=== PATIENT | female | born 1955 | race African-American/Black ===

== ENCOUNTER 2018-08-04 19:25 | Observation (INO) | payer OTHER ==
--- NOTE | 2018-08-04 19:33 | PDOC ---
Rapid Medical Evaluation Time Seen by Provider: 08/04/18 19:28 Medical Evaluation: Allergies Allergy/AdvReac Type Severity Reaction Status Date / Time No Known Allergies Allergy Verified 09/23/14 16:13 08/04/18 19:28 Pt presents for SOB, lightheadedness and cough for 3 days. PMHX of asthma and RA Exam: Lungs CATB, poor aeration to the bases. SPO2 82% ORA, Tachycardic to the 120's Orders: Labs, IV, Urine O2, EKG, cardiac monitoring Pt to proceed to ED for further evaluation Discharge Disposition - Diagnosis Shortness of breath - Referrals - Patient Instructions - Post Discharge Activity
[2018-08-04] MEDS ORDERED: ALBUTEROL SO4 2.5/IPRATROPIUM 0.5 INH SOL 3 ML VIAL.NEB. NEB ONE ×2 (19:55→20:14)
[2018-08-04] MEDS ORDERED: methylPREDNISolone NA SUCC 125 MG/2 ML VIAL IVPUSH ONE (19:55)
--- NOTE | 2018-08-04 20:14 | PDOC ---
History of Present Illness - General Chief Complaint: Shortness of Breath Stated Complaint: COUGH/SOB Time Seen by Provider: 08/04/18 19:28 History Source: Patient Exam Limitations: No Limitations - History of Present Illness Initial Comments: 08/04/18 20:52 Ms. Rudd is a 63 yo F with a hx of rheumatoid arthritis and asthma presents to the emergency department with SOB for 2 days. She states that it has become progessively worse with associative coughs. Her coughs are productive with "yellow, green and some red in it". During these coughing episodes, she endorses having center chest pain without radiation that terminates at cessation of coughing spells. She becomes acutely SOB with exertion. She denies hx of cardiac disease and HI. She does not use medications associated for her asthma. Denies the following: hx of DVT/PE, hx of long travels, hx of anti- coagulant use, fever, chills, current chest pain, abdominal pain, nausea, vomiting, dysuria, hematuria, hematochezia, melena, leg pain/swelling, hormone use, and recent surgeries. Pmhx: Refer to above Shx: cyst removal on chest May 2018 Meds: None Allergies: NKDA Social: Endorses tobacco and alcohol use. Denies substance abuse. 08/04/18 22:30 08/04/18 22:35 Past History - Past Medical History Allergies/Adverse Reactions: Allergies Allergy/AdvReac Type Severity Reaction Status Date / Time No Known Allergies Allergy Verified 08/04/18 19:32 Home Medications: Ambulatory Orders Albuterol Sulfate Inhaler - [Ventolin Hfa Inhaler -] 1 - 2 inh PO Q4H PRN Asthma: Yes COPD: No - Suicide/Smoking/Psychosocial Hx Smoking History: Current every day smoker Have you smoked in the past 12 months: Yes Number of Cigarettes Smoked Daily: 15 Information on smoking cessation initiated: Yes 'Breaking Loose' booklet given: 08/04/18 Hx Alcohol Use: Yes Drug/Substance Use Hx: No Substance Use Type: None Review of Systems - Review of Systems Able to Perform ROS?: Yes Is the patient limited Lithuanian proficient: No Constitutional: No: Chills, Diaphoresis, Fever HEENTM: No: Eye Pain, Recent change in vision, Nose Pain, Throat Pain, Mouth Pain Respiratory: Yes: Shortness of Breath, SOB with Exertion, Productive cough Cardiac (ROS): No: Chest Pain, Lightheadedness, Palpitations, Syncope, Chest Tightness ABD/GI: No: Constipated, Diarrhea, Nausea, Rectal Bleeding, Vomiting, Abdominal cramping, Tarry Stools : No: Burning, Dysuria, Hematuria Musculoskeletal: No: Back Pain Integumentary: No: Lesions, Rash Neurological: No: Headache, Numbness, Paresthesia, Weakness, Ataxia Psychiatric: No: Stressors Endocrine: No: Unexplained Weight Gain Hematologic/Lymphatic: No: Anemia *Physical Exam - Vital Signs Last Vital Signs Temp Pulse Resp BP Pulse Ox 99.3 F 124 H 22 H 172/85 H 81 L 08/04/18 19:28 08/04/18 19:28 08/04/18 19:28 08/04/18 19:28 08/04/18 19:28 - Physical Exam General Appearance: Yes: Nourished, Appropriately Dressed HEENT: positive: EOMI, CABRERA, Normal Voice Neck: positive: Trachea midline. negative: Lymphadenopathy (R), Lymphadenopathy (L) Respiratory/Chest: positive: Lungs Clear, Decreased Breath Sounds, Other (scar midline sternal area s/p cyst removal). negative: Chest Tender, Respiratory Distress, Accessory Muscle Use, Crackles, Rales, Rhonchi Cardiovascular: positive: Regular Rhythm, S1, S2, Tachycardia. negative: Systolic Murmur Gastrointestinal/Abdominal: positive: Normal Bowel Sounds, Flat, Soft. negative : Tender, Pulsatile Mass Lymphatic: negative: Adenopathy Musculoskeletal: positive: Normal Inspection. negative: CVA Tenderness Extremity: positive: Normal Capillary Refill, Normal Inspection, Normal Range of Motion. negative: Tender Integumentary: positive: Normal Color, Dry, Warm Neurologic: positive: trial attorney II-XII NML intact, Fully Oriented, Alert, Normal Mood/ Affect, Normal Response, Motor Strength 5/5 Heart Score/ECG Review - ECG Intrepretation Comment:: ventricular rate 110 bpm, UT 156 ms, QTc is 473. Sinus tachycardia without ST elevations or depressions noted. ED Treatment Course - LABORATORY CBC & Chemistry Diagram: 08/05/18 06:30 08/05/18 06:30 Medical Decision Making - Medical Decision Making 08/04/18 22:49 Ms. Rudd is a 63 yo F with a hx of rheumatoid arthritis and asthma presents to the emergency department with SOB for 2 days Initial vitals: Initial Vital Signs Temp Pulse Resp BP Pulse Ox 99.3 F 124 H 22 H 172/85 H 81 L 08/04/18 19:28 08/04/18 19:28 08/04/18 19:28 08/04/18 19:28 08/04/18 19:28 Work up: ddx: PNA vs Asthma exacerbation vs malignancy vs URI vs influenza vs ACS vs pericarditis treatment: magnesium, duoneb x4, oxygen n.c., solumedrol Laboratory Tests 08/04/18 08/04/18 08/04/18 19:57 19:57 19:57 WBC 9.7 RBC 5.09 Hgb 15.5 H Hct 46.5 H MCV 91.3 MCH 30.5 MCHC 33.4 RDW 14.9 Plt Count 271 D MPV 8.7 Absolute Neuts (auto) 6.3 Neutrophils % 65.0 D Lymphocytes % 26.2 D Monocytes % 7.5 D Eosinophils % 0.7 D Basophils % 0.6 Nucleated RBC % 0 PT with INR 13.60 H INR 1.15 H VBG pH POC VBG pCO2 POC VBG pO2 Mixed VBG HCO3 Sodium 142 Potassium 4.2 Chloride 109 H Carbon Dioxide 28 Anion Gap 5 L BUN 12 Creatinine 0.6 Creat Clearance w eGFR > 60 Random Glucose 112 H Calcium 8.4 L Magnesium 2.0 Total Bilirubin 0.4 AST 27 ALT 28 Alkaline Phosphatase 87 B-Natriuretic Peptide 49.0 Total Protein 7.4 Albumin 3.4 Influenza A (Rapid) Influenza B (Rapid) 08/04/18 08/04/18 19:57 19:57 WBC RBC Hgb Hct MCV MCH MCHC RDW Plt Count MPV Absolute Neuts (auto) Neutrophils % Lymphocytes % Monocytes % Eosinophils % Basophils % Nucleated RBC % PT with INR INR VBG pH 7.36 POC VBG pCO2 47.9 POC VBG pO2 56.1 H Mixed VBG HCO3 26.5 H Sodium Potassium Chloride Carbon Dioxide Anion Gap BUN Creatinine Creat Clearance w eGFR Random Glucose Calcium Magnesium Total Bilirubin AST ALT Alkaline Phosphatase B-Natriuretic Peptide Total Protein Albumin Influenza A (Rapid) Negative Influenza B (Rapid) Negative pt was given duoneb and steroids. despite the 4 amps, she was saturating in the mid to low 90s on 3.5 liters of O2. She was given 1 liter of NS and HR improved to 98 from 120s. She states she is symptomatically better. On the patients CT, it shows possible new infiltrate in the right apical region. Will be admitted and given levaquin. Dispo: Admit *DC/Admit/Observation/Transfer Diagnosis at time of Disposition: Shortness of breath - Referrals - Patient Instructions - Post Discharge Activity
[2018-08-04] MEDS ORDERED: SODIUM CHLORIDE 1,000 ML IV STA (20:16)
[2018-08-04] MEDS ORDERED: methylPREDNISolone NA SUCC 125 MG/2 ML VIAL ONE (20:17)
[2018-08-04 20:21] LABS: BASO % 0.6 % (0-2.0); EOS % 0.7 % (0-4.5); HEMATOCRIT 46.5 % (32.4-45.2); HEMOGLOBIN 15.5 GM/dL (10.7-15.3); LYMPH % 26.2 % (8-40); MCH 30.5 pg (25.7-33.7); MCHC 33.4 g/dl (32.0-36.0); MEAN CELL VOLUME 91.3 fl (80-96); MEAN PLT VOLUME 8.7 fl (7.5-11.1); MONO % 7.5 % (3.8-10.2); PLATELET COUNT 271 K/MM3 (134-434); RBC 5.09 M/mm3 (3.60-5.2); RDW 14.9 % (11.6-15.6); VENOUS PC02 47.9 mmHg (38-52); VENOUS PH 7.36 (7.32-7.42); VENOUS PO2 56.1 mmHg (28-48); WHITE BLOOD COUNT 9.7 K/mm3 (4.0-10.0)
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
[2018-08-04] MEDS ORDERED: MAGNESIUM 1GM/D5W - 1 GM/100 ML IVPB IVPB ONE (20:26)
[2018-08-04 20:34] LABS: INR 1.15 (0.83-1.09); PROTHROMBIN TIME (PATIENT) 13.6 SEC (9.7-13.0)
[2018-08-04 20:48] LABS: ALBUMIN 3.4 g/dl (3.4-5.0); ALK PHOS 87 U/L (45-117); ANION GAP 5 MMOL/L (8-16); BILIRUBIN,TOTAL 0.4 mg/dL (0.2-1); BLOOD UREA NITROGEN 12 mg/dL (7-18); CALCIUM 8.4 mg/dL (8.5-10.1); CHLORIDE 109 mmol/L (98-107); CO2 28 mmol/L (21-32); CREATININE 0.6 mg/dL (0.55-1.3); GLUCOSE,RANDOM 112 mg/dL (74-106); POTASSIUM 4.2 mmol/L (3.5-5.1); SGOT/AST 27 U/L (15-37); SGPT/ALT 28 U/L (13-61); SODIUM 142 mmol/L (136-145); TOT PROT 7.4 g/dl (6.4-8.2)
--- NOTE | 2018-08-04 23:33 | HP ---
Admitting History and Physical - Admission Chief Complaint: SOB, Wheezing History of Present Illness: This is a 63 y/o woman with a PMHx of RA (no med), Asthma. Who presents to the ED with SOB, wheezing and cough x 1-2 days. Patient reports having chills and chest tightness worse when coughing. She states" my cough is productive from [id number]". Patient reports having a similar episode 1 year ago and hospitalized. Patient is a current tobacco smoker. Patient denies fever, dizziness, [place], CP, palpitations, AP, N/V/D, constipation, dysuria. History Source: Patient Limitations to Obtaining History: No Limitations - Past Medical History Pulmonary: Yes: Asthma Rheumatology: Yes: Rheumatoid Arthritis - Past Surgical History Additional Past Surgical History: Cyst removed from Left Breast (benign) - Smoking History Smoking history: Current every day smoker Have you smoked in the past 12 months: Yes Aproximately how many cigarettes per day: 10 (30yr smoking hx) - Alcohol/Substance Use Hx Alcohol Use: Yes History of Substance Use: reports: None Home Medications - Allergies Allergies/Adverse Reactions: Allergies Allergy/AdvReac Type Severity Reaction Status Date / Time No Known Allergies Allergy Verified 08/04/18 19:32 - Home Medications Home Medications: Ambulatory Orders Albuterol Sulfate Inhaler - [Ventolin Hfa Inhaler -] 1 - 2 inh PO Q4H PRN Family Disease History - Family Disease History Family Disease History: [place]: Father (unknown type), Other: Mother (Alive and well ) Review of Systems - Review of Systems Constitutional: reports: Chills Eyes: reports: No Symptoms HENT: reports: No Symptoms Neck: reports: No Symptoms Cardiovascular: reports: Shortness of Breath Respiratory: reports: Cough, SOB, SOB on Exertion Gastrointestinal: reports: No Symptoms Genitourinary: reports: No Symptoms Breasts: reports: No Symptoms Reported Musculoskeletal: reports: No Symptoms Integumentary: reports: No Symptoms Neurological: reports: No Symptoms Endocrine: reports: No Symptoms Hematology/Lymphatic: reports: No Symptoms Psychiatric: reports: No Symptoms Physical Examination Vital Signs: Vital Signs Temperature 99.3 F 08/04/18 19:28 Pulse Rate 124 H 08/04/18 19:28 Respiratory Rate 22 H 08/04/18 19:28 Blood Pressure 172/85 H 08/04/18 19:28 O2 Sat by Pulse Oximetry (%) 81 L 08/04/18 19:28 Constitutional: Yes: Well Nourished, No Distress, Calm Eyes: Yes: WNL, Conjunctiva Clear, EOM Intact, PERRL HENT: Yes: WNL, Atraumatic, Normocephalic Neck: Yes: WNL, Supple, Trachea Midline Cardiovascular: Yes: WNL, Regular Rate and Rhythm, S1, S2 Respiratory: Yes: Diminished, On Nasal O2, Rhonchi Gastrointestinal: Yes: WNL, Normal Bowel Sounds, Soft, Abdomen, Obese ...Rectal Exam: Yes: WNL Renal/: Yes: WNL Breast(s): Yes: WNL Musculoskeletal: Yes: WNL Extremities: Yes: WNL Edema: Yes Edema: LLE: Trace, RLE: Trace Peripheral Pulses WNL: Yes Neurological: Yes: WNL, Alert, Oriented ...Motor Strength: WNL Psychiatric: Yes: WNL, Alert, Oriented Labs: CBC, BMP 08/04/18 19:57 08/04/18 19:57 Laboratory Results - last 24 hr 08/04/18 08/04/18 08/04/18 19:57 19:57 19:57 WBC 9.7 RBC 5.09 Hgb 15.5 H Hct 46.5 H MCV 91.3 MCH 30.5 MCHC 33.4 RDW 14.9 Plt Count 271 D MPV 8.7 Absolute Neuts (auto) 6.3 Neutrophils % 65.0 D Lymphocytes % 26.2 D Monocytes % 7.5 D Eosinophils % 0.7 D Basophils % 0.6 Nucleated RBC % 0 PT with INR 13.60 H INR 1.15 H VBG pH POC VBG pCO2 POC VBG pO2 Mixed VBG HCO3 Sodium 142 Potassium 4.2 Chloride 109 H Carbon Dioxide 28 Anion Gap 5 L BUN 12 Creatinine 0.6 Creat Clearance w eGFR > 60 Random Glucose 112 H Calcium 8.4 L Magnesium 2.0 Total Bilirubin 0.4 AST 27 ALT 28 Alkaline Phosphatase 87 Creatine Kinase 456 H Creatine Kinase Index 0.6 CK-MB (CK-2) 2.98 Troponin I < 0.02 B-Natriuretic Peptide 49.0 Total Protein 7.4 Albumin 3.4 Influenza A (Rapid) Influenza B (Rapid) 08/04/18 08/04/18 08/05/18 19:57 19:57 02:25 WBC RBC Hgb Hct MCV MCH MCHC RDW Plt Count MPV Absolute Neuts (auto) Neutrophils % Lymphocytes % Monocytes % Eosinophils % Basophils % Nucleated RBC % PT with INR INR VBG pH 7.36 POC VBG pCO2 47.9 POC VBG pO2 56.1 H Mixed VBG HCO3 26.5 H Sodium Potassium Chloride Carbon Dioxide Anion Gap BUN Creatinine Creat Clearance w eGFR Random Glucose Calcium Magnesium Total Bilirubin AST ALT Alkaline Phosphatase Creatine Kinase Creatine Kinase Index CK-MB (CK-2) Troponin I < 0.02 B-Natriuretic Peptide Total Protein Albumin Influenza A (Rapid) Negative Influenza B (Rapid) Negative Current Medications Generic Name Dose Route Start Last Admin Trade Name Freq PRN Reason Stop Dose Admin Ipratropium [place] 1 amp 08/05/18 08:00 Atrovent 0.02% Nebulizer - NEB RQID MOHAN Methylprednisolone Sodium Succinate 40 mg 08/05/18 10:00 Solu-Medrol - IVPUSH 08/10/18 09:59 DAILY MOHAN Imaging - Results Chest X-ray: Image Reviewed Cat Scan: Image Reviewed EKG: Image Reviewed Problem List - Problems (1) Asthma with acute exacerbation Assessment/Plan: Likely secondary to Pneumonia Chest Xray- increased b/l upper and lower lung field interstitial thickening, mean pulmonary artery is dilated with a 3.5 diameter suggestive of Pulmonary Hypertension. Several small supplemental opacites noted bilaterally? Fibrosis, infiltrates and/or atelectasis Startred on Levaquin, Magnesium Sulfate IV, Solumederol IV Rap[id Flu- neg A+B Duonebs given, will continue once HR < 100's, consider Ipatropium instead Peak Flows Repeat CBC, BMP in am Appreciate Pulm consult Consider adding SUSANNA Code(s): J45.901 - UNSPECIFIED ASTHMA WITH (ACUTE) EXACERBATION (2) Shortness of breath Assessment/Plan: Likely secondary to Acute Asthma Exacerbation vs COPD Appreciate Pulmonolgy Consult Continue duonebs O2 Monitor vitals Code(s): R06.02 - SHORTNESS OF BREATH (3) Hypoxia Assessment/Plan: Likely secondary Tobacco Use vs Asthma Flare vs COPD Excerbation VBG 7.36/47.9/56.1/26.5 O2 Code(s): R09.02 - HYPOXEMIA (4) Rheumatoid arthritis Assessment/Plan: controlled Pt not on current meds f/u with Digital Printer in outpatient setting as needed Code(s): M06.9 - RHEUMATOID ARTHRITIS, UNSPECIFIED Assessment/Plan 63 y/o woman with PMHx: RA, Asthma, Tobacco Use. Placed in tele Observation for Acute on Chronic Asthma for further evaluation of their emergent medical condition. Plan: FEN Po fluids as tolerated Replete lytes prn Regular Diet Code Status: Full Code Dispo: Tele Observation Visit type - Emergency Visit Emergency Visit: Yes ED Registration Date: 08/04/18 Care time: The patient presented to the Emergency Department on the above date and was hospitalized for further evaluation of their emergent condition. - New Patient This patient is new to me today: Yes Date on this admission: 08/04/18 - Critical Care Critical Care patient: No
[2018-08-05] MEDS ORDERED: IPRATROPIUM BR 0.02% 0.5 MG/2.5 ML VIAL.NEB. NEB PRN ×2 (06:13→22:32)
[2018-08-05] MEDS ORDERED: ALBUTEROL SO4 0.083% IH SOL 2.5 MG/3 ML VIAL.NEB. NEB PRN ×2 (06:37→22:32)
[2018-08-05 07:09] LABS: BASO % 0.2 % (0-2.0); HEMATOCRIT 47.3 % (32.4-45.2); HEMOGLOBIN 15.4 GM/dL (10.7-15.3); LYMPH % 20.2 % (8-40); MCH 30.2 pg (25.7-33.7); MCHC 32.5 g/dl (32.0-36.0); MEAN CELL VOLUME 92.7 fl (80-96); MEAN PLT VOLUME 8.6 fl (7.5-11.1); MONO % 1.4 % (3.8-10.2); NEUT % 78.2 % (42.8-82.8); PLATELET COUNT 255 K/MM3 (134-434); RDW 14.9 % (11.6-15.6); WHITE BLOOD COUNT 8.9 K/mm3 (4.0-10.0)
[2018-08-05 07:41] LABS: ANION GAP 6 MMOL/L (8-16); BLOOD UREA NITROGEN 10 mg/dL (7-18); CALCIUM 9.1 mg/dL (8.5-10.1); CHLORIDE 108 mmol/L (98-107); CO2 26 mmol/L (21-32); CREATININE 0.5 mg/dL (0.55-1.3); GLUCOSE,RANDOM 135 mg/dL (74-106); POTASSIUM 4.9 mmol/L (3.5-5.1); SODIUM 140 mmol/L (136-145)
[2018-08-05] MEDS ORDERED: IPRATROPIUM BR 0.02% 0.5 MG/2.5 ML VIAL.NEB. NEB SCH (08:00)
--- NOTE | 2018-08-05 08:50 | EKG ---
Test Reason : Blood Pressure : / mmHG Vent. Rate : 110 BPM Atrial Rate : 110 BPM P-R Int : 156 ms QRS Dur : 092 ms QT Int : 350 ms P-R-T Axes : 077 015 067 degrees QTc Int : 473 ms SINUS TACHYCARDIA POSSIBLE LEFT ATRIAL ENLARGEMENT INCOMPLETE RIGHT BUNDLE BRANCH BLOCK WHEN COMPARED WITH ECG OF 23-SEP-2014 17:16, NO SIGNIFICANT CHANGE WAS FOUND Confirmed by KARISSA SHANKS MD ([id number]) on 08/05/2018 8:49:55 AM Referred By: Confirmed By:KARISSA SHANKS MD
[2018-08-05] MEDS ORDERED: methylPREDNISolone NA SUCC 40 MG/1 ML VIAL IVPUSH SCH (10:00)
[2018-08-05] MEDS ORDERED: IPRATROPIUM BR 0.02% 0.5 MG/2.5 ML VIAL.NEB. NEB ONE (10:59)
[2018-08-05] MEDS ORDERED: ALBUTEROL SO4 0.083% IH SOL 2.5 MG/3 ML VIAL.NEB. NEB ONE (10:59)
[2018-08-05] MEDS ORDERED: methylPREDNISolone NA SUCC 40 MG/1 ML VIAL ONE (10:59)
--- NOTE | 2018-08-05 11:26 | PN ---
Progress Note, Physician Chief Complaint: AWAKE ALERT EVENTS AND NOTES REVIEWED PATIENT FEELS BETTER - Current Medication List Current Medications: Active Medications Albuterol Sulfate (Ventolin 0.083% Nebulizer Soln -) 1 amp NEB Q6H PRN PRN Reason: SHORT OF BREATH/WHEEZING Last Admin: 08/05/18 10:59 Dose: 1 amp Ipratropium [place] (Atrovent 0.02% Nebulizer -) 1 amp NEB RQID PRN PRN Reason: SHORT OF BREATH/WHEEZING Last Admin: 08/05/18 10:59 Dose: 1 amp Methylprednisolone Sodium Succinate (Solu-Medrol -) 40 mg IVPUSH DAILY MOHAN Stop: 08/10/18 09:59 Last Admin: 08/05/18 10:59 Dose: 40 mg - Objective Vital Signs: Vital Signs Temperature 98.0 F 08/05/18 09:22 Pulse Rate 82 08/05/18 09:22 Respiratory Rate 18 08/05/18 09:22 Blood Pressure 109/59 L 08/05/18 09:22 O2 Sat by Pulse Oximetry (%) 96 08/05/18 09:22 Constitutional: Yes: Mild Distress Eyes: Yes: WNL HENT: Yes: WNL Neck: Yes: WNL Cardiovascular: Yes: WNL Respiratory: Yes: On Nasal O2, Wheezes Gastrointestinal: Yes: WNL Genitourinary: Yes: WNL Musculoskeletal: Yes: WNL Extremities: Yes: WNL Edema: No Peripheral Pulses WNL: Yes Integumentary: Yes: WNL Wound/Incision: Yes: Clean/Dry Neurological: Yes: WNL ...Motor Strength: WNL Psychiatric: Yes: WNL Labs: CBC, BMP 08/05/18 06:30 08/05/18 06:30 INR, PTT INR 1.15 (0.83-1.09) H 08/04/18 19:57 Problem List - Problems (1) Asthma with acute exacerbation Code(s): J45.901 - UNSPECIFIED ASTHMA WITH (ACUTE) EXACERBATION (2) Shortness of breath Code(s): R06.02 - SHORTNESS OF BREATH (3) Asthma Code(s): J45.909 - UNSPECIFIED ASTHMA, UNCOMPLICATED (4) DVT prophylaxis Code(s): VGA9209 - (5) Hypoxia Code(s): R09.02 - HYPOXEMIA Assessment/Plan PULM/CARDIO EVAL ECHO NEBS STEROIDS O2 SUPPORT DVT PROPHYLAXIS
[2018-08-05 12:53] LABS: URINE APPEARANCE SLCLOUDY; URINE BILIRUBIN NEGATIVE (<2.0 mg/dL); URINE COLOR YELLOW; URINE GLUCOSE (UA) NEGATIVE (NEGATIVE); URINE KETONE NEGATIVE (NEGATIVE); URINE LEUK ESTERASE NEGATIVE (NEGATIVE); URINE NITRITE NEGATIVE (NEGATIVE); URINE PROTEIN NEGATIVE (NEGATIVE); URINE UROBILINOGEN 4.0 E.U/dl mg/dL (0.2-1.0)
--- NOTE | 2018-08-05 13:56 | CON.CARD ---
Consult Consult Specialty:: Cardiology Referred by:: Dr. Newman Reason for Consultation:: Possible pulmonary htn - History of Present Illness Chief Complaint: sob History of Present Illness: 63 year old woman with pmh asthma, RA, admitted with sob x 3 days similar to prior asthma exacerbations, pleuritic chest pain with coughing, productive cough , recent plan trip from [place]. Pt had a a CTA chest in ER that showed b /l interstitial disease, nodules, and noted an enlarged main pulmonary artery which raised suspicion for pulmonary HTN. Pt seen and examined in the er in nad. Feeling better since admission. Currently having echo done, images briefly reviewed at bedside. There is insufficient TR to estimate the RVSP thus cannot evaluate for pulmonary htn on this study. - History Source History Provided By: Patient, Medical Record Limitations to Obtaining History: No Limitations - Past Medical History Pulmonary: Yes: Asthma Rheumatology: Yes: Rheumatoid Arthritis - Alcohol/Substance Use Hx Alcohol Use: Yes History of Substance Use: reports: None - Smoking History Smoking history: Current every day smoker Have you smoked in the past 12 months: Yes Aproximately how many cigarettes per day: 15 - Social History ADL: Independent History of Recent Travel: No Home Medications - Allergies Allergies/Adverse Reactions: Allergies Allergy/AdvReac Type Severity Reaction Status Date / Time No Known Allergies Allergy Verified 08/04/18 19:32 - Home Medications Home Medications: Ambulatory Orders Albuterol Sulfate Inhaler - [Ventolin Hfa Inhaler -] 1 - 2 inh PO Q4H PRN Family Disease History - Family Disease History Family Disease History: CA: Father (unknown type), Other: Mother (Alive and well ) Review of Systems - Review of Systems Constitutional: denies: No Symptoms, Chills, Diaphoresis, Fever, Lethargy, Loss of Appetite, Malaise, Night Sweats, Unintentional Wgt. Loss, Weakness, Other Eyes: denies: No Symptoms, Blind Spots, Blurred Vision, Double Vision, Eye Pain , Floaters, Photophobia, Recent Change in Vision, Other HENT: denies: No Symptoms, Difficult Swallowing, Ear Discharge, Ear Pain, Epistaxis, Gingival Bleeding, Hearing Loss, Mouth Swelling, Nasal Congestion, Ocular Prosthesis, Throat Pain, Toothache, Ringing in Ears, Other Neck: denies: No Symptoms, Decreased ROM, Lumps, Pain on Movement, Stiffness, Swollen Glands, Tenderness, Other Cardiovascular: reports: Chest Pain, Shortness of Breath. denies: No Symptoms, Edema, Palpitations, Other Respiratory: reports: Cough, SOB, SOB on Exertion. denies: No Symptoms, Exercise Intolerance, Hemoptysis, Orthopnea, PND, Snoring, Wheezing, Other Gastrointestinal: denies: No Symptoms, Abdominal Pain, Bloating, Constipation, Diarrhea, Dysphagia, Indigestion, Melena, Nausea, Rectal Bleeding, Vomiting, Vomiting Blood, Other Genitourinary: denies: No Symptoms, Burning, Discharge, Dysuria, Flank Pain, Frequency, Hematuria, Incontinence, Lesions, Menses, Pain, Testicular Mass, Testicular Pain, Testicular Swelling, Urgency, Vaginal Bleeding, Other Breasts: denies: No Symptoms Reported, See HPI, Breast Implants, Discharge from Nipple, Lumps, Pain, Skin Changes, Other Musculoskeletal: denies: No Symptoms, Back Pain, Crepitus, Decreased ROM, Extremity Pain, Joint Pain, Joint Swelling, Muscle Pain, Muscle Cramps, Muscle Weakness, Other Integumentary: denies: No Symptoms, Blister, Bruising, Change in Color, Eczema, Erythema, Incision, Lesions, Lump, Pallor, Pruritis, Rash, Wound, Other Neurological: denies: No Symptoms, Change in LOC, Change in Speech, Confusion, Dizziness, Headache, Incoordination, Numbness, Parasthesia, Pre-Existing Deficit , Seizure, Syncope, Tremors, Unsteady Gait, Weakness, Other Endocrine: denies: No Symptoms, Excessive Sweating, Flushing, Increased Hunger, Increased Thirst, Intolerance to Cold, Intolerance to Heat, Unexplained Weight Gain, Unexplained Weight Loss, Other Hematology/Lymphatic: denies: No Symptoms, Easily Bruised, Excessive Bleeding, Swollen Glands, Other Psychiatric: denies: No Symptoms, Altered Sleep Pattern, Anxiety, Depression, Hallucinations, Panic, Paranoia, Suicidal, Other Vital Signs: Vital Signs Temperature 98 F 08/05/18 11:28 Pulse Rate 91 H 08/05/18 11:28 Respiratory Rate 16 08/05/18 11:28 Blood Pressure 124/66 08/05/18 11:28 O2 Sat by Pulse Oximetry (%) 97 08/05/18 11:28 Constitutional: Yes: No Distress, Calm Eyes: Yes: Conjunctiva Clear, EOM Intact, PERRL HENT: Yes: Atraumatic, Normocephalic Neck: Yes: Supple, Trachea Midline Respiratory: Yes: Regular, Wheezes. No: Cough, Rales, Rhonchi, SOB Gastrointestinal: Yes: Normal Bowel Sounds, Soft. No: Distention, Tenderness Cardiovascular: Yes: Regular Rate and Rhythm. No: Bradycardia, Tachycardia, Pulse Irregular, Gallop, Rub, Varicosities JVD: No Carotid Bruit: No PMI: Non-Displaced Heart Sounds: Yes: S1, S2. No: Split S2, S3, S4, Clicks, Gallop, Rub, Bruit Murmur: No: Systolic Murmur, Diastolic Murmur Extremities: Yes: WNL Edema: No Peripheral Pulses WNL: Yes Peripheral Pulses: 2+ Left Doralis Pedis, 2+ Right Dorsalis Pedis Neurological: Yes: Alert, Oriented Psychiatric: Yes: Alert, Oriented - Other Data Labs, Other Data: CBC, BMP 08/05/18 06:30 08/05/18 06:30 INR, PTT INR 1.15 (0.83-1.09) H 08/04/18 19:57 Troponin, BNP 08/04/18 08/05/18 08/05/18 19:57 02:25 06:30 Troponin I < 0.02 < 0.02 < 0.02 B-Natriuretic Peptide 49.0 Troponin, BNP 08/04/18 08/05/18 08/05/18 19:57 02:25 06:30 Troponin I < 0.02 < 0.02 < 0.02 B-Natriuretic Peptide 49.0 ekg-sinus tach 110bpm, LAE, incomplete RBBB Echo: Image Reviewed Imaging - Results Chest X-ray: Report Reviewed, Image Reviewed EKG: Report Reviewed, Image Reviewed Other: Report Reviewed, Image Reviewed Assessment/Plan 63 year old woman with pmh asthma, RA, admitted with sob x 3 days similar to prior asthma exacerbations, pleuritic chest pain with coughing, productive cough , recent plan trip from [place]. Pt had a a CTA chest in ER that showed b /l interstitial disease, nodules, and noted an enlarged main pulmonary artery which raised suspicion for pulmonary HTN. Pt seen and examined in the er in nad. Feeling better since admission. Currently having echo done, images briefly reviewed at bedside. There is insufficient TR to estimate the RVSP thus cannot evaluate for pulmonary htn on this study. Possible pulmonary htn -based on dilated main pulm artery seen on CT chest -insufficient TR to est RVSP on echo, could not assess for pulm htn -pt currently admitted with acute asthma exacerbation, would recc further evaluation for possible pulm htn as outpatient once recovers from asthma exacerbation -she does have a h/o RA and evidence of possible interstitial lung disease on CT -pulmonary consulted SOB-AE Asthma vs COPD -on bronchodilators and steroids -no sign of CHF -does not require diuretics at this time -pulmonary to evaluate recc outpatient fup and can consider RHC as outpatient to further evaluate for pulm htn No other inpatient cardiac work up needed at this time. Please call with any additional questions.
--- NOTE | 2018-08-05 14:20 | ECHO ---
Name: COCO PEREZ Exam:Adult Echocardiogram Study Date: 08/05/2018 12:01 PM Age: 63 yrs Reason For Study: CHECK VALVES,PULHTN Height: 62 in Weight: 200 lb BSA: 1.9 m2 MMode/2D Measurements & Calculations IVSd: 0.93 cm Ao root diam: 2.7 cm LVIDd: 4.0 cm LA dimension: 3.5 cm LVIDs: 1.9 cm ACS: 1.8 cm LVPWd: 1.0 cm IVSs: 1.3 cm LVPWs: 1.2 cm EDV(Teich): 68.5 ml ESV(Teich): 11.7 ml Doppler Measurements & Calculations MV E max perry: 60.0 cm/sec Ao V2 max: 152.7 cm/sec MV A max perry: 95.8 cm/sec Ao max P.3 mmHg MV E/A: 0.63 Ao V2 mean: 112.0 cm/sec Ao mean P.5 mmHg Ao V2 VTI: 28.8 cm TR max perry: 286.0 cm/sec PA V2 max: 104.5 cm/sec TR max P.7 mmHg PA max P.4 mmHg PA V2 mean: 76.9 cm/sec PA mean P.6 mmHg PA V2 VTI: 19.5 cm Med Peak E' Perry: 6.8 cm/sec Med E/e': 8.8 Lat Peak E' Perry: 11.1 cm/sec Lat E/e': 5.4 Left Ventricle Left ventricular systolic function is normal. Ejection Fraction = 60-65%. The transmitral spectral Do ppler flow pattern is suggestive of impaired LV relaxation. Right Ventricle The right ventricle is normal size. The right ventricular systolic function is grossly normal. Atria The left atrium is borderline dilated. Right atrial size is normal. Mitral Valve There is mild mitral valve thickening. There is no mitral valve stenosis. There is trace mitral regur gitation. Tricuspid Valve The tricuspid valve is normal in structure and function. There is mild tricuspid regurgitation. Right ventricular systolic pressure is elevated at 30-40mmHg. Aortic Valve The aortic valve opens well. No hemodynamically significant valvular aortic stenosis. No aortic regur gitation is present. Pulmonic Valve The pulmonic valve is not well seen, but is grossly normal. There is no pulmonic valvular stenosis. T here is no pulmonic valvular regurgitation. Great Vessels The aortic root is normal size. Pericardium/Pleura There is no pericardial effusion. Interpretation Summary The right ventricular systolic function is grossly normal. There is mild tricuspid regurgitation. Right ventricular systolic pressure is elevated at 30-40mmHg. Left ventricular systolic function is normal. Ejection Fraction = 60-65%. The transmitral spectral Doppler flow pattern is suggestive of impaired LV relaxation. The left atrium is borderline dilated. There is mild mitral valve thickening. There is no pericardial effusion. MD Shukla *Jeffy 08/05/2018 02:19 PM
[2018-08-05 14:40] VITALS: BMI 39.3
--- NOTE | 2018-08-05 15:15 | PN ---
Progress Note (short form) - Note Progress Note: PULMONARY CONSULTATION DICTATED 08/05/18 IMP ASTHMA EXACERBATION LIKELY URI RA SUB-PLEURAL NODULES LIKELY INFLAMMATORY R/O OSAS PULMONARY HTN PLAN IV STEROIDS INHALED BRONCHODILATORS ABX SPUTUM C+S PFTS OUTPATIENT SLEEP SCREEN F/U CHEST CT OUTPATIENT MONITOR PEAK FLOW DR PALACIOS Problem List - Problems (1) Asthma with acute exacerbation Code(s): J45.901 - UNSPECIFIED ASTHMA WITH (ACUTE) EXACERBATION (2) Shortness of breath Code(s): R06.02 - SHORTNESS OF BREATH (3) Rheumatoid arthritis Code(s): M06.9 - RHEUMATOID ARTHRITIS, UNSPECIFIED (4) Wheezing Code(s): R06.2 - WHEEZING
--- NOTE | 2018-08-05 17:03 | CONS ---
DATE OF CONSULTATION: 08/05/2018 PULMONARY CONSULTATION REFERRING PHYSICIAN: Linda Newman M.D. HISTORY OF PRESENT ILLNESS: The patient is a 63-year-old black female known to me from previous hospitalization with past medical history of asthma maintained on albuterol inhaler, rheumatoid arthritis was previously on Remicade, discontinued over a year ago, admitted to [facility] with complaint of 3-day history of increasing shortness of breath, cough, chest congestion. Patient recently returned home from [place]. She said when she got out in the airport, when i the wind hit her in the face and at the time she started to get short of breath. Stated wheezing, chest congestion, cough productive of yellowish sputum, no hemoptysis. Also complains of mild chest discomfort. She presented to the emergency room with the above. In the ER, on chest ct she was noted to have mildly increased interstitial change bilaterally, some pleural nodules and some apical likely atelectasis and/or infiltrate. She also was noted to have enlarged pulmonary arteries. She underwent an echo which is read as right ventricular systolic pressure of approximately 30 to 40 mmHg. Patient denies any history of respiratory failure requiring ventilatory support. She is a nonsmoker. There is no history of occupational exposure to chemicals or fumes. She states that she ambulates at times, gets short of breath walking up inclines. She denies any PND or orthopnea. She is unsure whether or not she snores. Denies any excessive daytime sleepiness. She denies any history of DVT or PE in the past. There is no history of weight loss or night sweats. PAST MEDICAL HISTORY: Again includes rheumatoid arthritis and asthma. SOCIAL HISTORY: No occupational exposures. Nonsmoker. CURRENT MEDICATIONS: Include Solu-Medrol, albuterol, and Atrovent. REVIEW OF SYSTEMS: Positive shortness of breath. Positive cough. Positive bronchospasm. Positive orthopnea. No fever. No chills. No hemoptysis. No abdominal pain. No lower extremity edema. PHYSICAL EXAMINATION: GENERAL: The patient is a well-developed, well-nourished female awake, alert, in no acute distress. She is afebrile. VITAL SIGNS: Blood pressure is 126/66, respiratory rate is 16. HEENT: Normocephalic, atraumatic. NECK: Supple. HEART: Regular S1, S2. CHEST: A few scattered bilateral wheezes. ABDOMEN: Soft, bowel sounds positive. EXTREMITIES: No cyanosis, edema. LABORATORY: WBC 8, hemoglobin 15.4, hematocrit 47.3, platelet count of 255, 000. INR is 1.15. Venous blood gas is 7.36, pCO2 of 47, pO2 of 56. BUN 10, creatinine 0.5. Chest CT revealed a 1.9 x 1.1 cm subdural opacity in right pulmonary apex. There is interval development of several small subdural opacities bilaterally. IMPRESSION: 1. Acute asthma exacerbation secondary to likely upper respiratory infection. 2. Rheumatoid arthritis. 3. Nodular opacities, likely inflammatory. PLAN: IV steroids, inhaled bronchodilators, supplemental O2 as needed, monitor peak flow, review antibiotics, obtain followup chest CT in 3-4 months. Pulmonary function test as outpatient. Serum IGE level as outpatient. Sputum for eosinophils as outpatient. AHMET PALACIOS M.D. [id number] MTDD
[2018-08-05] MEDS ORDERED: PT OWN MED DRAWER 7, Y5N ONE (20:15)
[2018-08-05] MEDS: CEFUROXIME AXETIL 500 MG TABLET PO SCH (21:12)
[2018-08-06] MEDS: methylPREDNISolone NA SUCC 40 MG/1 ML VIAL IVPUSH SCH (10:26)
[2018-08-06] MEDS: CEFUROXIME AXETIL 500 MG TABLET PO SCH ×2 (10:30→21:20)
--- NOTE | 2018-08-06 11:01 | PN ---
Progress Note, Physician Chief Complaint: AWAKE ALERT FEELING BETTER - Current Medication List Current Medications: Active Medications Albuterol Sulfate (Ventolin 0.083% Nebulizer Soln -) 1 amp NEB Q6H PRN PRN Reason: SHORT OF BREATH/WHEEZING Cefuroxime Axetil (Ceftin -) 500 mg PO BID [facility] Last Admin: 08/06/18 10:30 Dose: 500 mg Ipratropium [place] (Atrovent 0.02% Nebulizer -) 1 amp NEB Q6H PRN PRN Reason: SHORT OF BREATH/WHEEZING Methylprednisolone Sodium Succinate (Solu-Medrol -) 40 mg IVPUSH DAILY [facility] Stop: 08/10/18 09:59 Last Admin: 08/06/18 10:26 Dose: 40 mg - Objective Vital Signs: Vital Signs Temperature 97.6 F 08/06/18 05:00 Pulse Rate 73 08/06/18 05:00 Respiratory Rate 18 08/06/18 05:00 Blood Pressure 106/72 08/06/18 05:00 O2 Sat by Pulse Oximetry (%) 92 L 08/06/18 00:00 Constitutional: Yes: Mild Distress Eyes: Yes: WNL HENT: Yes: WNL Neck: Yes: WNL Cardiovascular: Yes: WNL Respiratory: Yes: Diminished, On Nasal O2, Wheezes Gastrointestinal: Yes: WNL, Soft, Abdomen, Obese Genitourinary: Yes: WNL Musculoskeletal: Yes: WNL Extremities: Yes: WNL Edema: No Peripheral Pulses WNL: Yes Integumentary: Yes: WNL Wound/Incision: Yes: Clean/Dry Neurological: Yes: WNL ...Motor Strength: WNL Psychiatric: Yes: WNL Labs: CBC, BMP 08/05/18 06:30 08/05/18 06:30 INR, PTT INR 1.15 (0.83-1.09) H 08/04/18 19:57 Problem List - Problems (1) Asthma with acute exacerbation Code(s): J45.901 - UNSPECIFIED ASTHMA WITH (ACUTE) EXACERBATION (2) Shortness of breath Code(s): R06.02 - SHORTNESS OF BREATH (3) Asthma Code(s): J45.909 - UNSPECIFIED ASTHMA, UNCOMPLICATED (4) DVT prophylaxis Code(s): [id number] - (5) Hypoxia Code(s): R09.02 - HYPOXEMIA Assessment/Plan CONTINUE NEBS/STEROIDS PULM F/U APPRECIATED OOB TO CHAIR DC PLANNING TOMORROW
--- NOTE | 2018-08-06 11:44 | PN ---
Progress Note, Physician History of Present Illness: PULMONARY ALERT,FEELING BETTER,LESS DYSPNEIC - Current Medication List Current Medications: Active Medications Albuterol Sulfate (Ventolin 0.083% Nebulizer Soln -) 1 amp NEB Q6H PRN PRN Reason: SHORT OF BREATH/WHEEZING Cefuroxime Axetil (Ceftin -) 500 mg PO BID [facility] Last Admin: 08/06/18 10:30 Dose: 500 mg Ipratropium [place] (Atrovent 0.02% Nebulizer -) 1 amp NEB Q6H PRN PRN Reason: SHORT OF BREATH/WHEEZING Methylprednisolone Sodium Succinate (Solu-Medrol -) 40 mg IVPUSH DAILY [facility] Stop: 08/10/18 09:59 Last Admin: 08/06/18 10:26 Dose: 40 mg - Objective Vital Signs: Vital Signs Temperature 97.6 F 08/06/18 05:00 Pulse Rate 73 08/06/18 05:00 Respiratory Rate 18 08/06/18 05:00 Blood Pressure 106/72 08/06/18 05:00 O2 Sat by Pulse Oximetry (%) 92 L 08/06/18 00:00 Constitutional: Yes: Well Nourished, Calm Eyes: Yes: WNL HENT: Yes: WNL Neck: Yes: WNL Cardiovascular: Yes: Regular Rate and Rhythm, S1, S2 Respiratory: Yes: Wheezes (FEW WHEEZES) Gastrointestinal: Yes: Normal Bowel Sounds, Soft Extremities: Yes: WNL Edema: No Labs: CBC, BMP Problem List - Problems (1) Asthma with acute exacerbation Code(s): J45.901 - UNSPECIFIED ASTHMA WITH (ACUTE) EXACERBATION (2) Shortness of breath Code(s): R06.02 - SHORTNESS OF BREATH (3) Rheumatoid arthritis Code(s): M06.9 - RHEUMATOID ARTHRITIS, UNSPECIFIED (4) Wheezing Code(s): R06.2 - WHEEZING Assessment/Plan IMP ASTHMA EXACERBATION IMPROVING LIKELY URI RA SUB-PLEURAL NODULES LIKELY INFLAMMATORY R/O OSAS PULMONARY HTN PLAN IV STEROIDS INHALED BRONCHODILATORS ABX SPUTUM C+S PFTS OUTPATIENT SLEEP SCREEN F/U CHEST CT OUTPATIENT Problem List - Problems (1) Asthma with acute exacerbation Code(s): J45.901 - UNSPECIFIED ASTHMA WITH (ACUTE) EXACERBATION (2) Shortness of breath Code(s): R06.02 - SHORTNESS OF BREATH (3) Rheumatoid arthritis Code(s): M06.9 - RHEUMATOID ARTHRITIS, UNSPECIFIED (4) Wheezing Code(s): R06.2 - WHEEZING
[2018-08-07] MEDS ORDERED: PT OWN MED DRAWER 7, Y5N ONE (09:00)
[2018-08-07 09:07] VITALS: BP 100/79; TEMP 98.3
[2018-08-07] MEDS: methylPREDNISolone NA SUCC 40 MG/1 ML VIAL IVPUSH SCH (09:08)
[2018-08-07] MEDS: CEFUROXIME AXETIL 500 MG TABLET PO SCH (09:11)
[2018-08-07 09:12] VITALS: PULSE 82
--- NOTE | 2018-08-07 12:05 | DS ---
Physical Examination Vital Signs: Vital Signs Temperature 98.3 F 08/07/18 09:00 Pulse Rate 82 08/07/18 09:00 Respiratory Rate 18 08/07/18 09:00 Blood Pressure 100/79 08/07/18 09:00 O2 Sat by Pulse Oximetry (%) 93 L 08/07/18 08:00 Constitutional: Yes: No Distress Eyes: Yes: WNL HENT: Yes: WNL Neck: Yes: WNL Cardiovascular: Yes: WNL Respiratory: Yes: Regular, Wheezes Gastrointestinal: Yes: WNL Renal/: Yes: WNL Musculoskeletal: Yes: WNL Extremities: Yes: WNL Edema: No Peripheral Pulses WNL: Yes Integumentary: Yes: WNL Wound/Incision: Yes: Clean/Dry Neurological: Yes: WNL ...Motor Strength: WNL Psychiatric: Yes: WNL Labs: CBC, BMP 08/05/18 06:30 08/05/18 06:30 Discharge Summary Reason For Visit: HYPOXIA,ASTHMA Current Active Problems Asthma with acute exacerbation (Acute) Shortness of breath (Acute) ACUTE BRONCHITIS Procedures: Principal: CT CHEST/LABS Hospital Course: ADMITTED FOR IV STEROIDSM ABX, NEBS, TREATED FOR ACUTE ASTHMA EXACERBATION WITH BRONCHITIS Condition: Good - Instructions Diet, Activity, Other Instructions: SEE YOUR DOCTOR IN 1 WEEK Disposition: HOME - Home Medications Comprehensive Discharge Medication List: Ambulatory Orders Albuterol Sulfate Inhaler - [Ventolin HFA Inhaler -] 1 - 2 inh PO Q4H PRN Albuterol 2.5/Ipratropium 0.5 [Duoneb -] 1 amp NEB TID #90 amp 08/07/18 Cefuroxime Axetil [Ceftin -] 500 mg PO BID #10 tablet 08/07/18 Methylprednisolone [Medrol Dose Shoaib] 4 mg PO ASDIR #21 tablet 08/07/18 Nebulizer [Compact Compressor Nebulizer] 1 each MC TID #1 each 08/07/18
== END 2018-08-07 13:00 | disposition home or self-care (01) ==
LOC: JER 19:25 → JERBED 22:24 → J7W 08-05 13:32
PROVIDERS: ADMIT Internal Medicine; ATTEND Family Medicine
PROC: 3E03329 Introduction of Other Anti-infective into Peripheral Vein, Percutaneous Approach (ICD-10-PCS; principal; 2018-08-04)
PROC: 3E0337Z Introduction of Electrolytic and Water Balance Substance into Peripheral Vein, Percutaneous Approach (ICD-10-PCS; 2018-08-04)
PROC: 3E0333Z Introduction of Anti-inflammatory into Peripheral Vein, Percutaneous Approach (ICD-10-PCS; 2018-08-04)
PROC: 3E033GC Introduction of Other Therapeutic Substance into Peripheral Vein, Percutaneous Approach (ICD-10-PCS; 2018-08-04)
PROC: 3E0F7GC Introduction of Other Therapeutic Substance into Respiratory Tract, Via Natural or Artificial Opening (ICD-10-PCS; 2018-08-04)
DX: J45.901 Unspecified asthma with (acute) exacerbation (principal); R09.02 Hypoxemia; J20.9 Acute bronchitis, unspecified; R06.02 Shortness of breath; M06.9 Rheumatoid arthritis, unspecified; F17.210 Nicotine dependence, cigarettes, uncomplicated; I27.20 Pulmonary hypertension, unspecified
CPT/HCPCS: 36415; 71045-TC-FY; 71250-TC; 80048; 80053; 81003; 82550; 82553; 82803; 83735; 83880; 84484; 85025; 85610; 87040; 87804; 93005; 93010; 93306-TC; 99285-25; G0378; J7030